=== PATIENT | male | born 1965 | race Caucasian/White ===

== ENCOUNTER 2016-08-28 12:25 | Inpatient (IN) | payer OTHER ==
[2016-08-28 12:48] VITALS: BMI 25.5
[2016-08-28] MEDS ORDERED: MAGNESIUM HYDROX 2400MG/30ML ORAL SUSPENSION 30 ML CUP PO PRN (16:55)
[2016-08-28] MEDS ORDERED: P-EPHED 60MG/TRIPROLIDI 2.5MG TABLET PO PRN (16:55)
[2016-08-28] MEDS ORDERED: NICOTINE POLACRILEX 4 MG GUM BC PRN (16:55)
[2016-08-28] MEDS ORDERED: chlordiazePOXIDE HCL 25 MG CAPSULE PO PRN (16:55)
[2016-08-28] MEDS ORDERED: MENTHOL/PHENOL 1 EACH UD MM PRN (16:55)
[2016-08-28] MEDS ORDERED: LOPERAMIDE HCL 2 MG CAPSULE PO PRN (16:55)
[2016-08-28] MEDS ORDERED: MAG HYDROX/AL HYDROX/SIMETH 30 ML UNIT-DOSE CUP PO PRN (16:55)
[2016-08-28] MEDS ORDERED: IBUPROFEN 400 MG TABLET (FP) PO PRN (16:55)
[2016-08-28] MEDS ORDERED: guaiFENesin/D-METHORPHAN HB 10 ML UNIT-DOSE CUPS PO PRN (16:55)
[2016-08-28] MEDS ORDERED: MAGNESIUM CITRATE 300 ML BOTTLE PO PRN (16:55)
[2016-08-28] MEDS ORDERED: ACETAMINOPHEN 325 MG TABLET (FP) PO PRN (16:55)
[2016-08-28] MEDS ORDERED: chlordiazePOXIDE HCL 25 MG CAPSULE PO ONE (16:55)
[2016-08-28] MEDS ORDERED: hydrOXYzine PAMOATE 50 MG CAPSULE (FP) PO PRN (16:55)
--- NOTE | 2016-08-28 17:07 | HP ---
CIWA Score - CIWA Score Nausea/Vomitin Muscle Tremors: 4-Moderate,w/Arms Extend Anxiety: 5 Agitation: 5 Paroxysmal Sweats: 3 Orientation: 1-Uncertain about Date Tacttile Disturbances: 1-Very Mild Itch/Numbness Auditory Disturbances: 0-None Visual Disturbances: 0-None Headache: 0-None Present CIWA-Ar Total Score: 22 Admission ROS BHS - HPI Chief Complaint: Withdrawal sx. Allergies/Adverse Reactions: Allergies Allergy/AdvReac Type Severity Reaction Status Date / Time No Known Drug Allergies Allergy Verified 08/28/16 16:13 nka Allergy Uncoded 08/28/16 16:13 History of Present Illness: 51 y/o man with a long hx. of alcoholism is admitted for detox. Pt. has been in previous detox,reports 3 yrs. sober while attending AA. Exam Limitations: No Limitations - Ebola screening Have you traveled outside of the country in the last 21 days: No Have you had contact with anyone from an Ebola affected area: No Have you been sick,other than usual withdrawal symptoms: No Do you have a fever: No - Review of Systems Constitutional: Diaphoresis EENT: reports: No Symptoms Reported Respiratory: reports: No Symptoms reported Cardiac: reports: No Symptoms Reported GI: reports: Nausea, Abdominal cramping : reports: No Symptoms Reported Musculoskeletal: reports: Back Pain, Joint Pain Integumentary: reports: Sweating Neuro: reports: Tremors Endocrine: reports: No Symptoms Reported Hematology: reports: No Symptoms Reported Psychiatric: reports: No Sypmtoms Reported Other Systems: Reviewed and Negative Patient History - Patient Medical History Hx Anemia: No Hx Asthma: No Hx Chronic Obstructive Pulmonary Disease (COPD): No Hx Cancer: No Hx Cardiac Disorders: No Hx Congestive Heart Failure: No Hx Hypertension: No Hx Hypercholesterolemia: No Hx Pacemaker: No HX Cerebrovascular Accident: No Hx Seizures: No Hx Dementia: No Hx Diabetes: No Hx Gastrointestinal Disorders: No Hx Genitourinary Disorders: No Hx Sexually Transmitted Disorders: No Hx Renal Disease (ESRD): No Hx Thyroid Disease: No Hx Human Immunodeficiency Virus (HIV): No Hx Hepatitis C: No Hx Depression: No Hx Suicide Attempt: No Hx Bipolar Disorder: Yes (latuda, Li++) Hx Schizophrenia: No - Patient Surgical History Past Surgical History: Yes Hx Neurologic Surgery: No Hx Cataract Extraction: No Hx Cardiac Surgery: No Hx Lung Surgery: No Hx Breast Surgery: No Hx Breast Biopsy: No Hx Abdominal Surgery: No Hx Appendectomy: No Hx Cholecystectomy: No Hx Genitourinary Surgery: No Hx Section: No Hx Orthopedic Surgery: No Other Surgical History: RT EYE SURGERY 2010 for trauma, laser surgery both eyes 2wks ago? Anesthesia Reaction: Yes - PPD History Previous Implant?: Yes Documented Results: Negative w/o proof PPD to be Administered?: Yes - Smoking Cessation Smoking history: Current every day smoker Have you smoked in the past 12 months: Yes Aproximately how many cigarettes per day: 40 Hx Chewing Tobacco Use: No Initiated information on smoking cessation: Yes 'Breaking Loose' booklet given: 08/28/16 - Substance & Tx. History Hx Alcohol Use: Yes Hx Substance Use: No Substance Use Type: Alcohol Hx Substance Use Treatment: Yes (detox) - Substances Abused Alcohol Route: Oral Frequency: Daily Amount used: beer- 12cans & vodka 1pt Age of first use: 15 Date of Last Use: 08/28/16 Family Disease History - Family Disease History Family Disease History: Heart Disease: Mother (HTN), Other: Brother (Alcoholic) Admission Physical Exam [facility] - Vital Signs Vital Signs: Vital Signs - 24 hr 08/28/16 12:40 Temperature 97.5 F L Pulse Rate 95 H Respiratory 20 Rate Blood Pressure 147/85 - Physical General Appearance: Yes: Alcohol on Breath, Tremorous, Irritable, Sweating, Anxious HEENTM: Yes: Within Normal Limits Respiratory: Yes: Chest Non-Tender, Lungs Clear, Normal Breath Sounds Neck: Yes: Supple Breast: Yes: Breast Exam Deferred Cardiology: Yes: Regular Rhythm, Regular Rate, S1, S2 Abdominal: Yes: Normal Bowel Sounds, Non Tender, Soft Genitourinary: Yes: Within Normal Limits Back: Yes: Within Normal Limits Musculoskeletal: Yes: Within Normal Limits Extremities: Yes: Tremors Neurological: Yes: Fully Oriented, Alert Integumentary: Yes: Diaphoresis Lymphatic: Yes: Within Normal Limits - Diagnostic (1) Alcohol dependence with uncomplicated withdrawal Current Visit: Yes Status: Acute Cleared for Admission [facility] - Detox or Rehab [facility] Level of Care: Medically Managed Detox Regimen/Protocol: Librium [facility] Breath Alcohol Content Breath Alcohol Content: 0.049 Urine Drug Screen - Results Drug Screen Negative: Yes
[2016-08-28] MEDS: chlordiazePOXIDE HCL 25 MG CAPSULE PO SCH ×2 (19:30→22:13)
[2016-08-28] MEDS: NICOTINE 21 MG/24 HOURS TOPICAL PATCH TD SCH (19:31)
[2016-08-28] MEDS: prednisoLONE ACETATE 1% OPHTH SUSP 5 ML BOTTLE OU SCH ×2 (19:31→22:13)
[2016-08-28] MEDS: THIAMINE HCL 100 MG TABLET (FP) PO SCH (22:13)
[2016-08-28] MEDS: diphenhydrAMINE HCL 50 MG CAPSULE PO PRN (22:15)
[2016-08-29] MEDS: chlordiazePOXIDE HCL 25 MG CAPSULE PO SCH ×4 (05:45→22:19)
--- NOTE | 2016-08-29 10:32 | PN ---
[facility] CIWA - CIWA Score Nausea/Vomitin-No Nausea/No Vomiting Muscle Tremors: 4-Moderate,w/Arms Extend Anxiety: 4-Mod. Anxious/Guarded Agitation: 3 Paroxysmal Sweats: 3 Orientation: 0-Oriented Tacttile Disturbances: 0-None Auditory Disturbances: 0-None Visual Disturbances: 0-None Headache: 1-Very Mild CIWA-Ar Total Score: 15 BHS Progress Note (SOAP) Subjective: irritable agitation anxiety sweats Objective: 08/29/16 10:32 Vital Signs Temperature 97.3 F L 08/29/16 09:52 Pulse Rate 81 08/29/16 09:52 Respiratory Rate 18 08/29/16 09:52 Blood Pressure 141/86 08/29/16 09:52 O2 Sat by Pulse Oximetry (%) labs pending awake/alert ambulating no acute distress Assessment: 08/29/16 10:32 withdrawal sx Plan: continue detox increase fluids labs pending
[2016-08-29 10:33] LABS: MCH 31.6 pg (25.7-33.7); MCHC 33.6 g/dl (32.0-35.9); MEAN PLT VOLUME 6.9 fl (7.5-11.1); PLATELET COUNT 302 K/MM3 (134-434); RDW 15.1 % (11.9-15.9); WHITE BLOOD COUNT 5.9 K/mm3 (4.0-10.0)
[2016-08-29] MEDS: NICOTINE 21 MG/24 HOURS TOPICAL PATCH TD SCH (10:37)
[2016-08-29] MEDS: prednisoLONE ACETATE 1% OPHTH SUSP 5 ML BOTTLE OU SCH ×4 (10:38→22:19)
[2016-08-29] MEDS: PRENATAL VITAMINS W/ FOLIC ACID TABLET (FP) PO SCH (10:38)
[2016-08-29 10:42] LABS: ALK PHOS 95 U/L (45-117); BILIRUBIN,TOTAL 0.7 mg/dL (0.2-1.0); CALCIUM 9.1 mg/dL (8.5-10.1); CO2 28 mmol/L (21-32); CREATININE 0.9 mg/dL (0.7-1.3); GLUCOSE,RANDOM 84 mg/dL (74-106); SGOT/AST 31 U/L (15-37); SGPT/ALT 41 U/L (12-78); TOT PROT 6.9 g/dl (6.4-8.2)
[2016-08-29 10:47] LABS: ANION GAP 10 (8-16)
--- NOTE | 2016-08-29 12:07 | CONSULT ---
[facility] Psychiatric Consult - Data Date of interview: 08/29/16 Admission source: [facility] Identifying data: This is 51 years old male , chronic alcoholic, imtoxicated with: Alcoholism, with history of Bipolar disorder, unclear psychiatric hospitalization history Substance Abuse History: - Smoking Cessation. Smoking history: Current every day smoker. Have you smoked in the past 12 months: Yes. Aproximately how many cigarettes per day: 40. Hx Chewing Tobacco Use: No. Initiated information on smoking cessation: Yes. 'Breaking Loose' booklet given: 08/28/16. - Substance & Tx. History. Hx Alcohol Use: Yes. Hx Substance Use: No. Substance Use Type : Alcohol. Hx Substance Use Treatment: Yes (detox). - Substances Abused. Alcohol. Route: Oral. Frequency: Daily. Amount used: beer- 12cans & vodka 1pt. Age of first use: 15. Date of Last Use: 08/28/16 Medical History: Denies Psychiatric History: Patient reports history of Bipolar disorder, reports taking prior vadim admission: Latuda 80mg po qhs. Asotin 450mg po qhs. Gabapentin 600mh po qhs Physical/Sexual Abuse/Trauma History: Denies Additional Comment: Latuda 80mg po qhs. Asotin 450mg po qhs. Gabapentin 600mh po qhs Mental Status Exam - Mental Status Exam Alert and Oriented to: Person Cognitive Function: Fair Patient Appearance: Unkempt Mood: Sad Affect: Flat Patient Behavior: Sedated Speech Pattern: Delayed Voice Loudness: Mildly Soft/Quiet Thought Process: Circumstantial Thought Disorder: Being Controlled Hallucinations: Denies Suicidal Ideation: Denies Homicidal Ideation: Denies Insight/Judgement: Fair Sleep: Poorly Appetite: Weight loss Muscle strength/Tone: Mild Hypotonicity Gait/Station: Shuffling Additional Comments: Latuda 80mg po qhs. Asotin 450mg po qhs. Gabapentin 600mh po qhs Psychiatric Findings - Problem List ([place] 1, 2,3) (1) Alcohol dependence with uncomplicated withdrawal Current Visit: Yes Status: Acute (2) Alcohol-induced mood disorder Current Visit: Yes Status: Acute (3) Alcohol induced insomnia Current Visit: Yes Status: Acute (4) Bipolar disorder Current Visit: Yes Status: Acute - Initial Treatment Plan Initial Treatment Plan: Latuda 80mg po qhs. Asotin 450mg po qhs. Gabapentin 600mh po qhs
--- NOTE | 2016-08-29 15:01 | EKG ---
Test Reason : Blood Pressure : / mmHG Vent. Rate : 079 BPM Atrial Rate : 079 BPM P-R Int : 162 ms QRS Dur : 090 ms QT Int : 380 ms P-R-T Axes : 075 058 056 degrees QTc Int : 435 ms NORMAL SINUS RHYTHM NORMAL ECG NO PREVIOUS ECGS AVAILABLE Confirmed by SUBHASH ISLAS MD ([id number]) on 08/29/2016 3:00:24 PM Referred By: Confirmed By:SUBHASH ISLAS MD
[2016-08-29] MEDS: GABAPENTIN 300 MG CAPSULE (FP) PO SCH ×2 (15:05→22:19)
[2016-08-29] MEDS: THIAMINE HCL 100 MG TABLET (FP) PO SCH (22:19)
[2016-08-29] MEDS: LITHIUM CARBONATE 450 MG TABLET.ER PO SCH (22:20)
[2016-08-29] MEDS: LURASIDONE HCL 40 MG TABLET PO SCH (22:20)
[2016-08-30] MEDS: GABAPENTIN 300 MG CAPSULE (FP) PO SCH ×3 (05:31→22:20)
[2016-08-30] MEDS: chlordiazePOXIDE HCL 25 MG CAPSULE PO SCH ×2 (05:31→11:01)
--- NOTE | 2016-08-30 10:30 | PN ---
S CIWA - CIWA Score Nausea/Vomitin Muscle Tremors: 2 Anxiety: 2 Agitation: 2 Paroxysmal Sweats: 3 Orientation: 0-Oriented Tacttile Disturbances: 1-Very Mild Itch/Numbness Auditory Disturbances: 0-None Visual Disturbances: 0-None Headache: 0-None Present CIWA-Ar Total Score: 12 BHS COWS - Scale GI Upset > 30mins: 1= Stomach Cramp BHS Progress Note (SOAP) Subjective: interrupted sleep, sweats Objective: 08/30/16 10:31 Vital Signs Temperature 98.3 F 08/30/16 10:15 Pulse Rate 74 08/30/16 10:15 Respiratory Rate 18 08/30/16 10:15 Blood Pressure 128/78 08/30/16 10:15 O2 Sat by Pulse Oximetry (%) Laboratory Tests 08/28/16 08/29/16 08/29/16 07:00 07:00 07:00 WBC 5.9 RBC 4.19 Hgb 13.2 Hct 39.4 MCV 94.0 MCHC 33.6 RDW 15.1 Plt Count 302 MPV 6.9 L Sodium 136 Potassium 4.2 Chloride 98 Carbon Dioxide 28 Anion Gap 10 BUN 11 Creatinine 0.9 Creat Clearance w eGFR > 60 Random Glucose 84 Calcium 9.1 Total Bilirubin 0.7 AST 31 ALT 41 Alkaline Phosphatase 95 Total Protein 6.9 Albumin 4.0 RPR Titer Hepatitis C Antibody 0.1 08/29/16 07:00 WBC RBC Hgb Hct MCV MCHC RDW Plt Count MPV Sodium Potassium Chloride Carbon Dioxide Anion Gap BUN Creatinine Creat Clearance w eGFR Random Glucose Calcium Total Bilirubin AST ALT Alkaline Phosphatase Total Protein Albumin RPR Titer Nonreactive Hepatitis C Antibody pt aox3 in nad ambulating Assessment: 08/30/16 10:32 withdrawal sx;s Plan: cont.detox increase fluids d/c in am
[2016-08-30] MEDS: prednisoLONE ACETATE 1% OPHTH SUSP 5 ML BOTTLE OU SCH ×4 (11:00→23:18)
[2016-08-30] MEDS: PRENATAL VITAMINS W/ FOLIC ACID TABLET (FP) PO SCH (11:01)
[2016-08-30] MEDS: NICOTINE 21 MG/24 HOURS TOPICAL PATCH TD SCH (11:01)
[2016-08-30] MEDS: chlordiazePOXIDE 5 MG CAPSULE PO SCH ×2 (17:51→22:20)
[2016-08-30] MEDS: THIAMINE HCL 100 MG TABLET (FP) PO SCH (22:20)
[2016-08-30] MEDS: LITHIUM CARBONATE 450 MG TABLET.ER PO SCH (23:20)
[2016-08-30] MEDS: LURASIDONE HCL 40 MG TABLET PO SCH (23:20)
[2016-08-31] MEDS: GABAPENTIN 300 MG CAPSULE (FP) PO SCH ×3 (05:48→22:25)
[2016-08-31] MEDS: chlordiazePOXIDE 5 MG CAPSULE PO SCH ×2 (05:48→10:43)
[2016-08-31 10:35] LABS: URINE APPEARANCE CLEAR; URINE BILIRUBIN NEGATIVE (NEGATIVE); URINE BLOOD NEGATIVE (NEGATIVE); URINE COLOR COLORLESS; URINE GLUCOSE (UA) NEGATIVE (NEGATIVE); URINE KETONE NEGATIVE (NEGATIVE); URINE LEUK ESTERASE NEGATIVE (NEGATIVE); URINE NITRITE NEGATIVE (NEGATIVE); URINE PROTEIN NEGATIVE (NEGATIVE); URINE UROBILINOGEN NEGATIVE E.U./dl (0.2-1.0)
[2016-08-31] MEDS: PRENATAL VITAMINS W/ FOLIC ACID TABLET (FP) PO SCH (10:42)
[2016-08-31] MEDS: NICOTINE 21 MG/24 HOURS TOPICAL PATCH TD SCH (10:43)
[2016-08-31] MEDS: prednisoLONE ACETATE 1% OPHTH SUSP 5 ML BOTTLE OU SCH ×4 (10:44→22:25)
--- NOTE | 2016-08-31 10:47 | PN ---
BHS Progress Note (SOAP) Subjective: tired agitation Objective: 08/31/16 10:46 Vital Signs Temperature 97.9 F 08/31/16 10:09 Pulse Rate 97 H 08/31/16 10:09 Respiratory Rate 16 08/31/16 10:09 Blood Pressure 117/79 08/31/16 10:09 O2 Sat by Pulse Oximetry (%) awake/alert ambulation no acute distress Assessment: 08/31/16 10:47 withdrawal sx Plan: continue detox increase fluids d/c in am
[2016-08-31] MEDS: chlordiazePOXIDE HCL 10 MG CAPSULE PO SCH ×2 (17:49→22:24)
[2016-08-31] MEDS: diphenhydrAMINE HCL 50 MG CAPSULE PO PRN (22:24)
[2016-08-31] MEDS: LITHIUM CARBONATE 450 MG TABLET.ER PO SCH (22:24)
[2016-08-31] MEDS: THIAMINE HCL 100 MG TABLET (FP) PO SCH (22:26)
[2016-08-31] MEDS: LURASIDONE HCL 40 MG TABLET PO SCH (22:33)
[2016-09-01] MEDS: chlordiazePOXIDE HCL 10 MG CAPSULE PO SCH (06:01)
[2016-09-01] MEDS: GABAPENTIN 300 MG CAPSULE (FP) PO SCH (06:24)
[2016-09-01 07:13] VITALS: BP 104/69; PULSE 72; TEMP 97.5
--- NOTE | 2016-09-01 09:11 | DS ---
[facility] Detox Discharge Summary Admission Date: 08/28/16 Discharge Date: 09/01/16 - History Present History: Alcohol Dependence - Physical Exam Results Vital Signs: Vital Signs Temperature 97.5 F L 09/01/16 07:12 Pulse Rate 72 09/01/16 07:12 Respiratory Rate 18 09/01/16 07:12 Blood Pressure 104/69 09/01/16 07:12 O2 Sat by Pulse Oximetry (%) - Treatment Hospital Course: Detox Protocol Followed, Detoxed Safely, Responded well, Discharged Condition Good - Medication Discharge Medications: Ambulatory Orders Gabapentin 600 mg PO HS 08/28/16 Fontanet Carbonate [Eskalith -] 450 mg PO HS 08/28/16 Lurasidone HCl [Latuda] 80 mg PO HS 08/28/16 Prednisolone 1% Ophthalmic [Pred Forte 1% -] 1 drop OP QID MDD 7 days- started on 08/26/16 08/28/16 Gabapentin [Neurontin -] 300 mg PO Q8H #90 capsule 08/29/16 Gabapentin [Neurontin -] 600 mg PO TID #90 08/29/16 Fontanet Carbonate [Eskalith -] 450 mg PO DAILY #30 tablet.er 08/29/16 Fontanet Carbonate [Eskalith -] 450 mg PO HS #30 08/29/16 Lurasidone HCl [Latuda -] 80 mg PO HS #30 tablet 08/29/16 Lurasidone HCl [Latuda -] 80 mg PO HS #30 tablet 08/29/16 - Diagnosis (1) Alcohol dependence with uncomplicated withdrawal Current Visit: Yes Status: Chronic (2) Bipolar disorder Current Visit: Yes Status: Chronic Qualifiers: Current episode severity: unspecified - AMA Did Patient Leave Against Medical Advice: No
[2016-09-01] MEDS: prednisoLONE ACETATE 1% OPHTH SUSP 5 ML BOTTLE OU SCH (10:24)
[2016-09-01] MEDS: PRENATAL VITAMINS W/ FOLIC ACID TABLET (FP) PO SCH (10:24)
== END 2016-09-01 10:40 | disposition home or self-care (01) | DRG 775 ==
LOC: YASAS 12:25 → Y6N 18:03
PROVIDERS: ADMIT Internal Medicine; ATTEND Internal Medicine Addiction Medicine
PROC: HZ2ZZZZ Detoxification Services for Substance Abuse Treatment (ICD-10-PCS; principal; 2016-09-01)
DX: F10.230 Alcohol dependence with withdrawal, uncomplicated (principal); F17.210 Nicotine dependence, cigarettes, uncomplicated; F32.9 Major depressive disorder, single episode, unspecified; F10.94 Alcohol use, unspecified with alcohol-induced mood disorder; F10.282 Alcohol dependence with alcohol-induced sleep disorder
CPT/HCPCS: 36415; 80053; 80178; 81003; 85027; 86593; 93005; 93010